=== PATIENT | female | born 1940 | race Caucasian/White ===

== ENCOUNTER 2016-11-25 20:30 | Emergency (ER) | payer MEDICARE ==
--- NOTE | 2016-11-26 06:10 | RAD ---
EXAMINATION : KNEE- LEFT 4 OR MORE VIEWS HISTORY: Ground-level fall. Left knee pain. COMPARISONS: None FINDINGS: There is a vertically nondisplaced fracture of the lateral aspect of the patella. The distal femur proximal tibia appear intact. No displaced fractures identified.. The joint space relationships are maintained. Suprapatellar effusion is noted. Prepatellar soft tissue swelling is evident as well. IMPRESSION: Nondisplaced patellar fracture. If indicated, patellar sunrise views may be helpful.
== END 2016-11-26 02:10 | disposition home or self-care (01) ==
LOC: ED 20:30
DX: S82.002A Unspecified fracture of left patella, initial encounter for closed fracture (principal); E78.5 Hyperlipidemia, unspecified; I10 Essential (primary) hypertension; M81.0 Age-related osteoporosis without current pathological fracture; Z85.828 Personal history of other malignant neoplasm of skin; W01.0XXA Fall on same level from slipping, tripping and stumbling without subsequent striking against object, initial encounter; Y92.003 Bedroom of unspecified non-institutional (private) residence as the place of occurrence of the external cause